=== PATIENT | female | born 1975 | race American Indian/Alaskan Native ===

== ENCOUNTER 2017-02-17 09:25 | Outpatient (CLI) | payer MEDICAID ==
--- NOTE | 2017-02-18 08:38 | Mammography Report ---
BILATERAL DIGITAL SCREENING MAMMOGRAM with CAD: 02/17/17 09:25:00 CLINICAL: Baseline screening FINDINGS: The breasts are heterogeneously dense, which may obscure small masses. Right asymmetries require additional imaging.No architectural distortion or suspicious calcifications.The left breast is negative. IMPRESSION: Right asymmetries requiring further workup. BI-RADS CATEGORY: 0 -- Additional Imaging Evaluation Required RECOMMENDATION: Recall for right mediolateral , spot compression CC and MLO views and right breast ultrasound if needed. ACR BI-RADS MAMMOGRAPHIC CODES: 0 = Needs additional imaging evaluation; 1 = Negative; 2 = Benign; 3 = Probably benign; 4 = Suspicious; 5 = Malignant; 6 = Known biopsy-proven malignancy COMMENT: 1. Dense breast tissue, i.e., adenosis, fibrocystic changes, etc., may obscure an underlying neoplasm. 2. Approximately 10% of cancers are not detected with mammography. 3. A negative mammography report should not delay biopsy if a clinically suspicious mass is present. COMMENT: Patient follow-up letters are generated via our [employer] application.
== END 2017-02-17 09:26 | disposition home or self-care (01) ==
LOC: SPVWC 09:25
PROVIDERS: ATTEND Family Medicine
DX: Z12.31 Encounter for screening mammogram for malignant neoplasm of breast (principal)
CPT/HCPCS: 77067; G0202

== ENCOUNTER 2017-03-18 08:56 | Outpatient (CLI) | payer MEDICAID ==
--- NOTE | 2017-03-18 09:23 | Mammography Report ---
RIGHT DIGITAL DIAGNOSTIC MAMMOGRAM : 03/18/17 08:56:00 CLINICAL: Recalled for asymmetry. COMPARISON:02/17/17 screening FINDINGS: Additional views of the right breast are negative. IMPRESSION: No mammographic evidence of malignancy. BI-RADS CATEGORY: 1 -- Negative RECOMMENDATION: Routine mammographic screening in one year. ACR BI-RADS MAMMOGRAPHIC CODES: 0 = Needs additional imaging evaluation; 1 = Negative; 2 = Benign; 3 = Probably benign; 4 = Suspicious; 5 = Malignant; 6 = Known biopsy-proven malignancy COMMENT: 1. Dense breast tissue, i.e., adenosis, fibrocystic changes, etc., may obscure an underlying neoplasm. 2. Approximately 10% of cancers are not detected with mammography. 3. A negative mammography report should not delay biopsy if a clinically suspicious mass is present. COMMENT: Patient follow-up letters are generated via our [employer] application.
== END 2017-03-18 08:57 | disposition home or self-care (01) ==
LOC: SPVWC 08:56
PROVIDERS: ATTEND Obstetrics & Gynecology
DX: R92.8 Other abnormal and inconclusive findings on diagnostic imaging of breast (principal)
CPT/HCPCS: G0206-RT

== ENCOUNTER 2018-04-07 13:27 | Outpatient (CLI) | payer MEDICAID, OTHER ==
--- NOTE | 2018-04-07 14:01 | Mammography Report ---
DIGITAL DIAGNOSTIC MAMMOGRAM : RIGHT CLINICAL: Recalled for asymmetry. COMPARISON:01/21/17 screening FINDINGS: Additional mammographic views were performed and are negative. IMPRESSION: Negative Mammogram. BI-RADS CATEGORY: 1 -- Negative RECOMMENDATION: Routine mammographic screening in one year. ACR BI-RADS MAMMOGRAPHIC CODES: 0 = Needs additional imaging evaluation; 1 = Negative; 2 = Benign; 3 = Probably benign; 4 = Suspicious; 5 = Malignant; 6 = Known biopsy-proven malignancy COMMENT: 1. Dense breast tissue, i.e., adenosis, fibrocystic changes, etc., may obscure an underlying neoplasm. 2. Approximately 10% of cancers are not detected with mammography. 3. A negative mammography report should not delay biopsy if a clinically suspicious mass is present. COMMENT: Patient follow-up letters are generated via our [employer] application.
== END 2018-04-07 13:28 | disposition home or self-care (01) ==
LOC: SPVWC 13:27
PROVIDERS: ATTEND Physician Assistant
DX: R92.2 Inconclusive mammogram (principal)

== ENCOUNTER 2018-07-07 08:23 | Outpatient (CLI) | payer MEDICAID ==
--- NOTE | 2018-07-07 09:07 | Ultrasound Report ---
TARGETED LEFT BREAST ULTRASOUND: 07/07/18 08:23:00 CLINICAL: A palpable lump felt by her doctor. The patient could not point directly to alum. COMPARISON: 02/20/18 screening mammogram FINDINGS: Ultrasound of the left breast was performed in the periareolar area from 12 o'clock to 3 o'clock and demonstratednormal fibroglandular structures with no mass, cyst or shadowing. IMPRESSION: Negative left breast ultrasound. BI-RADS 1 - - Negative RECOMMENDATION: Clinical followup and routine mammographic screening.
== END 2018-07-07 08:24 | disposition home or self-care (01) ==
LOC: SPVWC 08:23
PROVIDERS: ATTEND Advanced Practice Midwife
DX: N60.02 Solitary cyst of left breast (principal)

== ENCOUNTER 2019-02-21 10:46 | Outpatient (CLI) | payer MEDICAID ==
--- NOTE | 2019-02-22 10:45 | Mammography Report ---
DIGITAL SCREENING MAMMOGRAM WITH CAD, 02/21/2019 INDICATION: Routine screening mammography. TECHNIQUE: Digital bilateral 2D mammography was obtained in the craniocaudal and mediolateral obliq ue projections. This examination was interpreted with the benefit of Computer-Aided Detection analysi s. COMPARISON: 02/20/2018 FINDINGS: Breast Density: The breasts are heterogeneously dense, which may obscure small masses. There is no evidence of dominant mass, suspicious calcifications or architectural distortion in eithe r breast. IMPRESSION: No mammographic evidence of malignancy. Follow up recommendation: Routine yearly BI-RADS Category 1: Negative. A "normal" or negative report should not discourage follow up or biopsy of a clinically significant f inding. A written summary of these findings will be mailed to the patient. The patient will be entered into a mammography reporting system which will generate a reminder letter for the patient's next appointmen t at the appropriate interval. The [employer] recommends yearly mammograms starting at age 40 and continuing as l tona as a woman is in good health. Breast MRI is recommended for women with an approximate 20-25% or greater lifetime risk of breast cancer, including women with a strong family history of breast or ova colin cancer or who have been treated for Hodgkin's disease. Signer Name: Evelio Mulligan MD Signed: 02/22/2019 10:40 AM Workstation Name: [id number]
== END 2019-02-21 10:47 | disposition home or self-care (01) ==
LOC: SPVWC 10:46
PROVIDERS: ATTEND Advanced Practice Midwife
DX: Z12.31 Encounter for screening mammogram for malignant neoplasm of breast (principal)
CPT/HCPCS: 77067

== ENCOUNTER 2020-03-11 10:45 | Outpatient (CLI) | payer MEDICAID ==
--- NOTE | 2020-03-11 12:59 | Mammography Report ---
DIGITAL SCREENING MAMMOGRAM WITH CAD, 03/11/2020 CLINICAL INFORMATION / INDICATION: Routine screening mammography. SCREENING MAMMOGRAM TECHNIQUE: Digital bilateral 2D mammography was obtained in the craniocaudal and mediolateral obliqu e projections. This examination was interpreted with the benefit of Computer-Aided Detection analysis . COMPARISON: 02/17/2017 through 02/21/2019. FINDINGS: Breast Density: The breasts are heterogeneously dense, which may obscure small masses. No dominant mass, suspicious calcifications, or architectural distortion in either breast. IMPRESSION: No mammographic evidence of malignancy. Follow up recommendation: Routine yearly BI-RADS Category 1: Negative. A "normal" or negative report should not discourage follow up or biopsy of a clinically significant f inding. A written summary of these findings will be mailed to the patient. The patient will be entered into a mammography reporting system which will generate a reminder letter for the patient's next appointmen t at the appropriate interval. The [employer] recommends yearly mammograms starting at age 40 and continuing as l tona as a woman is in good health. Breast MRI is recommended for women with an approximate 20-25% or greater lifetime risk of breast cancer, including women with a strong family history of breast or ova colin cancer or who have been treated for Hodgkin's disease. Signer Name: Johan Morrison MD Signed: 03/11/2020 12:54 PM Workstation Name: [email or web address]
== END 2020-03-11 10:46 | disposition home or self-care (01) ==
LOC: SPVWC 10:45
PROVIDERS: ATTEND Advanced Practice Midwife
DX: Z12.31 Encounter for screening mammogram for malignant neoplasm of breast (principal)
CPT/HCPCS: 77067

== ENCOUNTER 2021-03-12 10:07 | Outpatient (CLI) | payer MEDICAID ==
--- NOTE | 2021-03-12 15:47 | Mammography Report ---
DIGITAL SCREENING MAMMOGRAM WITH CAD, 03/12/2021 CLINICAL INFORMATION / INDICATION: Routine screening mammography. SCREENING MAMMOGRAM TECHNIQUE: Digital bilateral 2D mammography was obtained in the craniocaudal and mediolateral obliqu e projections. This examination was interpreted with the benefit of Computer-Aided Detection analysis . COMPARISON: 02/17/2017 through 03/11/2020. FINDINGS: Breast Density: The breasts are heterogeneously dense, which may obscure small masses. No dominant mass, suspicious calcifications, or architectural distortion in either breast. IMPRESSION: No mammographic evidence of malignancy. Follow up recommendation: Routine yearly BI-RADS Category 1: NEGATIVE A "normal" or negative report should not discourage follow up or biopsy of a clinically significant f inding. A written summary of these findings will be mailed to the patient. The patient will be entered into a mammography reporting system which will generate a reminder letter for the patient's next appointmen t at the appropriate interval. The [employer] recommends yearly mammograms starting at age 40 and continuing as l tona as a woman is in good health. Breast MRI is recommended for women with an approximate 20-25% or greater lifetime risk of breast cancer, including women with a strong family history of breast or ova colin cancer or who have been treated for Hodgkin's disease. Signer Name: Johan Morrison MD Signed: 03/12/2021 3:42 PM Workstation Name: [id number]
== END 2021-03-12 10:08 | disposition home or self-care (01) ==
LOC: SPVWC 10:07
PROVIDERS: ATTEND Advanced Practice Midwife
DX: Z12.31 Encounter for screening mammogram for malignant neoplasm of breast (principal); N64.89 Other specified disorders of breast
CPT/HCPCS: 77067